=== PATIENT | male | born 1925 | race Caucasian/White ===

== ENCOUNTER 2016-07-29 09:52 | Inpatient (IN) | payer OTHER ==
[~2016-07-29] VITALS: Ht 177.8 cm; Wt 70.0 kg
--- NOTE | ~2016-07-29 | CON ---
[place], [place] REPORT OF CONSULTATION NAME: MANUEL LOWE UNIT #: [id number] ROOM: [facility] DOCTOR: JENNIFER VALERA MD,JAYLYN BIRTHDATE: [birth year] DOS: 07/29/2016 The patient asked for consultation. The patient was not seen and during this admission. The patient code status was changed to comfort care and terminal weaning was done yesterday by the primary care attending and the patient did pass after that. JAYLYN RODRIGUEZ MD CM:CONSTR:REPORT OF CONSULTATION 1240 07/30/16 [id number] interface
--- NOTE | ~2016-07-29 | PROC NOTE ---
[place], [place] PROCEDURE NOTE NAME[id number] UNIT #: [id number] ROOM: [facility] DOCTOR: GUSTABO CHACON DO BIRTHDATE: [birth year] DOS: SUPERVISING ATTENDING: Dr. Hernandez. PROCEDURE: Right internal jugular central venous catheter with the triple lumen. DESCRIPTION OF PROCEDURE: Timeout was completed verifying correct patient, procedure site, positioning, and equipment. The patient was placed in dependent position for IJ. The patient's right neck was prepped and draped in sterile fashion. A 1% lidocaine was used to anesthetize the area. A triple-lumen catheter was introduced into the right IJ using Seldinger technique. Under ultrasound guidance, catheter was threaded smoothly over the guidewire. Appropriate blood return was obtained. Each lumen of the catheter was flushed, appropriate return was obtained. Catheter sutured in place. A sterile dressing was applied. Perfusion of the distal extremity was checked and found to be adequate. Negligible blood loss. The patient tolerated the procedure well. There were no complications. Chest x-ray is pending. GUSTABO CHACON DO MARIANN HERNANDEZ DO CM:PROCNOTE:PROCEDURE NOTE 1625 1702 GUSTABO CHACON DO
[~2016-07-29 09:52] MED LIST: LANOXIN0.125 MG PO; ZOCOR80 MG PO
[2016-07-29 10:27] LABS: BASO # 0.1 10*3/uL (0.0-0.1); BASO % 0.4 % (0.0-1.0); HEMATOCRIT 24.4 % (42.0-52.0); HEMOGLOBIN 8.1 g/dl (14.0-18.0); IG # 0.1 10*3/uL (0.0-0.1); LYMPH # 1.1 10*3/uL (1.3-4.4); LYMPH % 8.1 % (27.0-41.0); MEAN CELL VOLUME 106.6 fl (80.0-94.0); MEAN CORPUSCULAR HGB 35.4 pg (27.0-31.0); MEAN CORPUSCULAR HGB CONC 33.2 g/dl (33.0-37.0); MEAN PLATELET VOLUME 9.4 fl (9.6-12.3); MONO # 0.5 10*3/uL (0.1-1.0); MONO % 3.7 % (3.0-9.0); NEUT # 11.8 10*3/uL (2.3-7.9); NEUT % 87.1 % (47.0-73.0); PLATELET COUNT AUTOMATED 261 10*3/uL (130-400); RED BLOOD COUNT 2.29 10*6/uL (4.50-5.90); RED CELL DISTRI WIDTH 14.9 % (0-14.5); WHITE BLOOD COUNT 13.6 10*3/uL (4.8-10.8)
[2016-07-29 10:35] LABS: INTERNATIONAL NORM RATIO 1.3 (2.0-3.5)
[2016-07-29 10:45] LABS: ALBUMIN 2.2 gm/dl (3.1-4.5); BILIRUBIN, DIRECT 0.4 mg/dL (0.0-0.2); BILIRUBIN, TOTAL 1.2 mg/dl (0.2-1.0); TOTAL PROTEIN 5.7 gm/dL (6.4-8.2)
[2016-07-29 10:50] LABS: TROPONIN I 0.055 ng/ml (<0.045)
[2016-07-29 12:23] LABS: LA>2 REFLEX 2 HR DRAW NOW
[2016-07-29 12:24] LABS: CKMB 3.5 ng/ml (0.5-3.6)
[2016-07-29 12:26] LABS: TROPONIN I 0.05 ng/ml (<0.045)
[2016-07-29 12:35] LABS: ABG BASE EXCESS -5.8 mmol/L (-2.0-2.0); ABG HCO3 21.3 mmol/l (22-26); ARTERIAL BLOOD GAS PH 7.249 (7.35-7.45); ARTERIAL BLOOD GAS PO2 80.7 mmHg (80-90)
[2016-07-29 12:48] LABS: BILIRUBIN NEGATIVE (NEGATIVE); BLOOD 3+ (NEGATIVE); CLARITY CLOUDY (CLEAR); COLOR YELLOW (YELLOW); GLUCOSE NEGATIVE (NEGATIVE); KETONE TRACE (NEGATIVE); LEUKO ESTERASE TRACE (NEGATIVE); NITRITE NEGATIVE (NEGATIVE); PROTEIN NEGATIVE (NEGATIVE); SPECIFIC GRAVITY 1.025 (1.005-1.030); UROBILINOGEN 0.2 E.U./dl (0.2-1.0)
[2016-07-29 12:57] LABS: URINE AMPHETAMINES < 1000 (1000ng/ml); URINE BARBITURATES < 200 (200ng/ml); URINE COCAINE < 300 (300ng/ml)
[2016-07-29 13:01] LABS: BACTERIA 3+; MUCOUS 2+; RBC 16-20 rbc/hpf (0-2); WBC 16-20 wbc/hpf (0-5)
[2016-07-29] MEDS ORDERED: PRILOSEC20 M1 PO (13:26)
[2016-07-29] MEDS ORDERED: LASIX20 MG PO (13:27)
[2016-07-29] MEDS ORDERED: CLARITIN10 MG PO (13:27)
[2016-07-29] MEDS ORDERED: ALDACTONE50 M1 PO (13:28)
[2016-07-29] MEDS ORDERED: RANITIDINE HYD300 MG PO (13:29)
[2016-07-29 13:43] LABS: LA>2 RFLX FOLLOW UP AT 2 HRS 6.3 mmol/L (0.4-2.0)
[2016-07-29 15:37] LABS: LA>2 REFLEX 4 HR DRAW NOW
[2016-07-29] MEDS ORDERED: ADVAIR DISKUS 51 DSK INH (16:57)
== END 2016-07-29 20:17 | disposition expired | DRG 871 ==
LOC: ED 09:52 → EDHOLD 11:21 → ICCU 11:30
PROVIDERS: Emergency Medicine; Internal Medicine
DX: A41.9 Sepsis, unspecified organism (principal); N17.0 Acute kidney failure with tubular necrosis; E43 Unspecified severe protein-calorie malnutrition; R65.21 Severe sepsis with septic shock; K56.60 Unspecified intestinal obstruction; I85.11 Secondary esophageal varices with bleeding; E87.0 Hyperosmolality and hypernatremia; T17.810A Gastric contents in other parts of respiratory tract causing asphyxiation, initial encounter; D68.9 Coagulation defect, unspecified; K92.2 Gastrointestinal hemorrhage, unspecified; R64 Cachexia; N39.0 Urinary tract infection, site not specified; Z66 Do not resuscitate; D64.9 Anemia, unspecified; E80.7 Disorder of bilirubin metabolism, unspecified; T68.XXXA Hypothermia, initial encounter; K72.90 Hepatic failure, unspecified without coma; Z68.22 Body mass index [BMI] 22.0-22.9, adult; Z95.1 Presence of aortocoronary bypass graft; Z98.41 Cataract extraction status, right eye; Z79.899 Other long term (current) drug therapy